=== PATIENT | male | born 1940 | race Caucasian/White ===

== ENCOUNTER 2016-12-13 13:45 | Inpatient (IN) | payer MEDICARE, OTHER ==
[~2016-12-13] VITALS: Ht 182.8 cm; Wt 108.4 kg
[2016-12-13] VITALS (7 sets, daily range): BP systolic 114–173; BP diastolic 50–83
[~2016-12-13 13:45] MED LIST: ASPIRIN81 M1 PO; BROVANA15 MCG/2 M INH; CARDIZEM90 MG PO; CIPRO500 MG PO; DELTASONE5 MG PO; FLUOXETINE40 MG PO; KEFLEX500 MG PO; LISINOPRIL20 MG PO; LOVASTATIN20 MG PO; MISOPROSTOL100 MCG PO; PRILOSEC20 MG PO; PULMICORT0.25 MG/2 INH; TRAVATAN OP; TRAZADONE HYDR100 MG PO
[2016-12-13 14:21] LABS: BILIRUBIN NEGATIVE (NEGATIVE); BLOOD 3+ (NEGATIVE); CLARITY CLEAR (CLEAR); COLOR YELLOW (YELLOW); GLUCOSE NEGATIVE (NEGATIVE); KETONE NEGATIVE (NEGATIVE); LEUKO ESTERASE 2+ (NEGATIVE); NITRITE NEGATIVE (NEGATIVE); PH 7.5 (5.0-9.0); PROTEIN TRACE (NEGATIVE)
[2016-12-13 14:25] LABS: BASO % 0.3 % (0.0-1.0); EOS # 0.1 10*3/uL (0.0-0.4); EOS % 1.1 % (1.0-4.0); HEMATOCRIT 37.6 % (42.0-52.0); HEMOGLOBIN 12.2 g/dl (14.0-18.0); LYMPH # 0.6 10*3/uL (1.3-4.4); LYMPH % 5.6 % (27.0-41.0); MEAN CELL VOLUME 90.6 fl (80.0-94.0); MEAN CORPUSCULAR HGB 29.4 pg (27.0-31.0); MEAN CORPUSCULAR HGB CONC 32.4 g/dl (33.0-37.0); MEAN PLATELET VOLUME 9.9 fl (9.6-12.3); MONO # 0.7 10*3/uL (0.1-1.0); MONO % 6.4 % (3.0-9.0); NEUT # 9.3 10*3/uL (2.3-7.9); NEUT % 86.2 % (47.0-73.0); PLATELET COUNT AUTOMATED 153 10*3/uL (130-400); RED BLOOD COUNT 4.15 10*6/uL (4.50-5.90); RED CELL DISTRI WIDTH 14.5 % (0-14.5); WHITE BLOOD COUNT 10.8 10*3/uL (4.8-10.8)
[2016-12-13 14:34] LABS: PROTHROMBIN TIME 10.5 SECONDS (9.0-12.4)
[2016-12-13 14:37] LABS: BACTERIA 2+; RBC 31-40 rbc/hpf (0-2); URINE REFLEX COMMENT YES (NO); WBC 16-20 wbc/hpf (0-5)
[2016-12-13 14:40] LABS: ALBUMIN 3.6 gm/dl (3.1-4.5); ALKALINE PHOSPHATASE 94 U/L (45-117); BILIRUBIN, TOTAL 0.5 mg/dl (0.2-1.0); BUN 15 mg/dl (7-24); C-REACTIVE PROTEIN 7.02 MG/DL (0-0.3); CARBON DIOXIDE 26 mmol/L (21-32); CHLORIDE 105 mmol/L (98-107); CKMB 0.8 ng/ml (0.5-3.6); CPK 46 U/L (39-308); EST GLOM FILT AFRICAN AMERICAN > 60 ml/min; GLUCOSE 88 mg/dL (65-99); MAGNESIUM 2.3 mg/dL (1.5-2.1); POTASSIUM 4.3 mmol/L (3.5-5.1); SGOT/AST 10 IU/L (3-35); SGPT/ALT 12 U/L (12-78); SODIUM 139 mmol/L (136-145); TOTAL PROTEIN 7.3 gm/dL (6.4-8.2)
[2016-12-13 14:41] LABS: TROPONIN I < 0.015 ng/ml (<0.045)
[2016-12-13] MEDS ORDERED: TAMSULOSIN HCL0.4 MG PO (20:38)
[2016-12-13] MEDS ORDERED: MIRALAX POWDER17 G1 PO (20:39)
[2016-12-13] MEDS ORDERED: DICLOFENAC SOD75 MG PO (20:40)
[2016-12-14] VITALS: BP 107/53
[2016-12-14 06:22] LABS: BASO % 0.2 % (0.0-1.0); EOS # 0.2 10*3/uL (0.0-0.4); EOS % 2.1 % (1.0-4.0); HEMATOCRIT 33.9 % (42.0-52.0); HEMOGLOBIN 10.9 g/dl (14.0-18.0); IG # 0.1 10*3/uL (0.0-0.1); LYMPH # 0.6 10*3/uL (1.3-4.4); LYMPH % 6.1 % (27.0-41.0); MEAN CELL VOLUME 91.9 fl (80.0-94.0); MEAN CORPUSCULAR HGB 29.5 pg (27.0-31.0); MEAN CORPUSCULAR HGB CONC 32.2 g/dl (33.0-37.0); MEAN PLATELET VOLUME 10.6 fl (9.6-12.3); MONO # 0.9 10*3/uL (0.1-1.0); MONO % 8.5 % (3.0-9.0); NEUT # 8.6 10*3/uL (2.3-7.9); NEUT % 82.3 % (47.0-73.0); PLATELET COUNT AUTOMATED 119 10*3/uL (130-400); RED BLOOD COUNT 3.69 10*6/uL (4.50-5.90); RED CELL DISTRI WIDTH 14.7 % (0-14.5); WHITE BLOOD COUNT 10.5 10*3/uL (4.8-10.8)
[2016-12-14 06:43] LABS: BUN 17 mg/dl (7-24); CARBON DIOXIDE 26 mmol/L (21-32); CHLORIDE 109 mmol/L (98-107); EST GLOM FILT AFRICAN AMERICAN > 60 ml/min; GLUCOSE 109 mg/dL (65-99); PHOSPHOROUS 2.5 mg/dL (2.5-4.9); SODIUM 139 mmol/L (136-145)
[2016-12-14 06:53] LABS: FREE T4 0.92 ng/dl (0.76-1.46); THYROID STIM HORMONE (HS) 0.277 uIU/ml (0.358-4.75)
[2016-12-14 08:00] VITALS: BP 138/58
[2016-12-14 09:20] LABS: FOLIC ACID 11.76 ng/mL (>5.38); VITAMIN D, 25-HYDROXY 31.1 ng/mL (30-100)
[2016-12-14 12:00] VITALS: BP 136/60
[2016-12-14 16:00] VITALS: BP 149/56
[2016-12-14 20:00] VITALS: BP 156/59
[2016-12-15] VITALS: BP 125/65
[2016-12-15 06:18] LABS: BASO % 0.2 % (0.0-1.0); EOS # 0.5 10*3/uL (0.0-0.4); EOS % 5.1 % (1.0-4.0); HEMATOCRIT 32.9 % (42.0-52.0); HEMOGLOBIN 10.8 g/dl (14.0-18.0); IG # 0.1 10*3/uL (0.0-0.1); LYMPH # 0.8 10*3/uL (1.3-4.4); LYMPH % 8.7 % (27.0-41.0); MEAN CELL VOLUME 91.6 fl (80.0-94.0); MEAN CORPUSCULAR HGB 30.1 pg (27.0-31.0); MEAN CORPUSCULAR HGB CONC 32.8 g/dl (33.0-37.0); MEAN PLATELET VOLUME 10.1 fl (9.6-12.3); MONO # 0.8 10*3/uL (0.1-1.0); MONO % 8.6 % (3.0-9.0); NEUT # 6.7 10*3/uL (2.3-7.9); NEUT % 76.6 % (47.0-73.0); PLATELET COUNT AUTOMATED 126 10*3/uL (130-400); RED BLOOD COUNT 3.59 10*6/uL (4.50-5.90); RED CELL DISTRI WIDTH 14.3 % (0-14.5); WHITE BLOOD COUNT 8.8 10*3/uL (4.8-10.8)
[2016-12-15 06:44] LABS: BUN 15 mg/dl (7-24); CARBON DIOXIDE 27 mmol/L (21-32); CHLORIDE 106 mmol/L (98-107); EST GLOM FILT AFRICAN AMERICAN > 60 ml/min; GLUCOSE 90 mg/dL (65-99); POTASSIUM 4.1 mmol/L (3.5-5.1); SODIUM 138 mmol/L (136-145)
[2016-12-15 08:00] VITALS: BP 146/60
[2016-12-15 12:00] VITALS: BP 154/65
[2016-12-15] MEDS ORDERED: DOXYCYCLINE100 M3 PO (12:32)
== END 2016-12-15 12:48 | disposition home or self-care (01) | DRG 872 ==
LOC: ED 13:45 → 5E 15:04 → EDHOLD 15:04 → 5E 15:35
PROVIDERS: Emergency Medicine; Internal Medicine; Student in an Organized Health Care Education/Training Program
PROC: 5A09357 Assistance with Respiratory Ventilation, Less than 24 Consecutive Hours, Continuous Positive Airway Pressure (ICD-10-PCS; principal; 2016-12-14)
DX: A41.9 Sepsis, unspecified organism (principal); N39.0 Urinary tract infection, site not specified; E83.41 Hypermagnesemia; J44.9 Chronic obstructive pulmonary disease, unspecified; D64.9 Anemia, unspecified; R31.29 Other microscopic hematuria; F17.210 Nicotine dependence, cigarettes, uncomplicated; I10 Essential (primary) hypertension; E78.5 Hyperlipidemia, unspecified; F32.9 Major depressive disorder, single episode, unspecified; B96.20 Unspecified Escherichia coli [E. coli] as the cause of diseases classified elsewhere; Z96.643 Presence of artificial hip joint, bilateral; Z96.653 Presence of artificial knee joint, bilateral; Z96.611 Presence of right artificial shoulder joint; Z95.5 Presence of coronary angioplasty implant and graft; Z98.42 Cataract extraction status, left eye; Z98.41 Cataract extraction status, right eye; Z82.49 Family history of ischemic heart disease and other diseases of the circulatory system; Z82.61 Family history of arthritis; Z79.82 Long term (current) use of aspirin; Z79.899 Other long term (current) drug therapy; Z79.2 Long term (current) use of antibiotics; Z71.6 Tobacco abuse counseling

== ENCOUNTER 2018-09-22 11:44 | Emergency (ER) | payer MEDICARE, OTHER ==
[~2018-09-22] VITALS: Wt 98.9 kg
[~2018-09-22 11:44] MED LIST changes: +DICLOFENAC SOD75 MG PO; +DOXYCYCLINE100 M3 PO; +MIRALAX POWDER17 G1 PO; +TAMSULOSIN HCL0.4 MG PO
[2018-09-22 11:46] VITALS: BP 141/86
== END 2018-09-22 14:22 | disposition home or self-care (01) ==
LOC: ED 11:44
DX: S01.21XA Laceration without foreign body of nose, initial encounter (principal); J44.9 Chronic obstructive pulmonary disease, unspecified; I10 Essential (primary) hypertension; K21.9 Gastro-esophageal reflux disease without esophagitis; E78.5 Hyperlipidemia, unspecified; F17.200 Nicotine dependence, unspecified, uncomplicated; Z79.899 Other long term (current) drug therapy; Z79.2 Long term (current) use of antibiotics; Z79.82 Long term (current) use of aspirin; W18.09XA Striking against other object with subsequent fall, initial encounter; Y93.89 Activity, other specified; Y92.89 Other specified places as the place of occurrence of the external cause; Y99.8 Other external cause status

== ENCOUNTER → 2021-11-20 | Outpatient (CLI) | payer MEDICARE, OTHER ==
[2021-11-23 20:07] LABS: FREE PSA 0.076 ng/mL (.)
== END | disposition home or self-care (01) ==
LOC: LAB 12:11
PROVIDERS: ATTEND Nurse Practitioner Family
DX: N40.1 Benign prostatic hyperplasia with lower urinary tract symptoms (principal)

== ENCOUNTER 2022-12-02 12:34 | Emergency (ER) | payer MEDICARE, OTHER ==
[~2022-12-02] VITALS: Wt 102.1 kg
[2022-12-02 12:48] VITALS: BP 97/41
[2022-12-02] MEDS ORDERED: Ipratropium Brom3 ML INH (13:36)
[2022-12-02] MEDS ORDERED: TRAMADOL HCL50 MG PO (15:31)
== END 2022-12-02 15:37 | disposition home or self-care (01) ==
LOC: ED 12:34
DX: S92.001A Unspecified fracture of right calcaneus, initial encounter for closed fracture (principal); J44.9 Chronic obstructive pulmonary disease, unspecified; E78.5 Hyperlipidemia, unspecified; Z91.048 Other nonmedicinal substance allergy status; Z79.899 Other long term (current) drug therapy; Z79.82 Long term (current) use of aspirin; Z98.890 Other specified postprocedural states; Z96.643 Presence of artificial hip joint, bilateral; Z96.653 Presence of artificial knee joint, bilateral; Z96.611 Presence of right artificial shoulder joint; Z95.5 Presence of coronary angioplasty implant and graft; Z96.612 Presence of left artificial shoulder joint; M19.90 Unspecified osteoarthritis, unspecified site; W01.0XXA Fall on same level from slipping, tripping and stumbling without subsequent striking against object, initial encounter; Y93.89 Activity, other specified; Y92.89 Other specified places as the place of occurrence of the external cause; Y99.8 Other external cause status

== ENCOUNTER 2024-09-24 18:50 | Emergency (ER) | payer OTHER ==
[~2024-09-24] VITALS: Ht 182.8 cm; Wt 95.3 kg
[~2024-09-24 18:50] MED LIST changes: +Ipratropium Brom3 ML INH; +TRAMADOL HCL50 MG PO
[2024-09-24 19:07] VITALS: BP 148/56
[2024-09-24] MEDS ORDERED: CEPHALEXIN500 M1 PO (19:25)
[2024-09-24] MEDS ORDERED: Gelatin Sponge 1 EACH SPON T ONE ×2 (19:30→19:46)
[2024-09-24] MEDS ORDERED: CEPHALEXIN 500 MG CAP PO ONE (19:30)
[2024-09-24] MEDS ORDERED: Tdap Vaccine 0.5 ML SYR (Adult Vaccine) IM ONE (19:30)
== END 2024-09-24 19:29 | disposition home or self-care (01) ==
LOC: ED 18:50
DX: S61.211A Laceration without foreign body of left index finger without damage to nail, initial encounter (principal); J44.9 Chronic obstructive pulmonary disease, unspecified; I10 Essential (primary) hypertension; K21.9 Gastro-esophageal reflux disease without esophagitis; F32.A Depression, unspecified; E78.5 Hyperlipidemia, unspecified; Z91.048 Other nonmedicinal substance allergy status; Z79.899 Other long term (current) drug therapy; Z79.82 Long term (current) use of aspirin; Z98.890 Other specified postprocedural states; Z96.653 Presence of artificial knee joint, bilateral; Z96.643 Presence of artificial hip joint, bilateral; Z95.5 Presence of coronary angioplasty implant and graft; W26.8XXA Contact with other sharp object(s), not elsewhere classified, initial encounter; Y93.89 Activity, other specified; Y92.89 Other specified places as the place of occurrence of the external cause; Y99.8 Other external cause status